=== PATIENT | male | born 1955 | race Caucasian/White ===

== ENCOUNTER → 2025-08-08 09:38 | Outpatient (BNVA) | payer MEDICARE, BC, SELFPAY | PROVIDERS: Visit Provider Surgery | DX: C15.5 Malignant neoplasm of lower third of esophagus (principal); Z87.74 Personal history of (corrected) congenital malformations of heart and circulatory system | CPT/HCPCS: 99204 ==

== ENCOUNTER 2025-08-08 10:56 | Outpatient (CLI) | payer MEDICARE, BC, SELFPAY ==
[2025-08-08 11:28] LABS: Abs Immature Grans 0.07 10^3/uL (0.0-0.06); HCT 25.9 % (40.0-50.0); HGB 8.7 g/dL (13.5-17.5); Immature Grans % 0.8 %; MCH 31.2 pg (27.0-33.0); MCHC 33.6 % (32.0-36.0); MCV 93 fL (80-95); MPV 9.6 fL (8.0-11.0); Platelet Count 300 10^3/uL (130-400); RBC 2.79 10^6/uL (4.36-5.78); RDW 11.9 % (11.8-14.1); RDW-SD 40.5 fL; WBC 9.23 10^3/uL (4.4-10.8)
[2025-08-08 12:35] LABS: INR 1.2 (0.9-1.1); Prothrombin Time 11.7 sec (9.1-11.1)
== END 2025-08-08 10:57 | disposition home or self-care (01) ==
PROVIDERS: Referring Provider Surgery; Visit Provider Surgery
DX: C15.5 Malignant neoplasm of lower third of esophagus (principal); F10.21 Alcohol dependence, in remission; Z01.818 Encounter for other preprocedural examination
CPT/HCPCS: 36415; 99204; 85025; 85610

== ENCOUNTER 2025-08-09 01:43 | Outpatient (CLI) | payer MEDICARE, BC, SELFPAY ==
[2025-08-09 14:03] LABS: Abs Immature Grans 0.06 10^3/uL (0.0-0.06); HCT 22.5 % (40.0-50.0); HGB 7.4 g/dL (13.5-17.5); Immature Grans % 0.6 %; MCH 30.2 pg (27.0-33.0); MCHC 32.9 % (32.0-36.0); MCV 92 fL (80-95); MPV 9.3 fL (8.0-11.0); Platelet Count 322 10^3/uL (130-400); RBC 2.45 10^6/uL (4.36-5.78); RDW 12.0 % (11.8-14.1); RDW-SD 40.5 fL; WBC 9.87 10^3/uL (4.4-10.8)
[2025-08-09 14:27] LABS: ALT 25 U/L (10-49); AST 36 U/L (<34); Albumin 3.3 g/dL (3.2-5.0); Alkaline Phosphatase 76 U/L (46-116); Anion Gap 6.9 mmol/L (3-11); BUN 34 mg/dL (9-23); Bilirubin, Total 0.3 mg/dL (0.2-1.2); CO2 27.1 mmol/L (20.0-31.0); Calcium 8.7 mg/dL (8.3-10.6); Chloride 103 mmol/L (98-107); Glucose 148 mg/dL (74-106); Potassium 4.3 mmol/L (3.5-5.1); Sodium 137 mmol/L (136-145); Total Protein 6.7 g/dL (5.7-8.2)
[2025-08-09 14:30] LABS: Ferritin 143 ng/mL (11-307)
[2025-08-09 14:35] LABS: Iron 70 ug/dL (65-175); Total Iron Binding Capacity 209 ug/dL (250-425); Transferrin Sat 33 % (20-55)
== END 2025-08-09 01:44 | disposition home or self-care (01) ==
LOC: LBO 01:44
PROVIDERS: Internal Medicine Hematology & Oncology; Visit Provider Internal Medicine Hematology & Oncology
DX: C15.9 Malignant neoplasm of esophagus, unspecified (principal); K92.1 Melena
CPT/HCPCS: 36415; 80053; 86850; 86900; 86901; 82728; 83540; 83550; 85025

== ENCOUNTER 2025-08-13 12:39 | Day surgery (SDC) | payer MEDICARE, BC, SELFPAY ==
--- NOTE | 2025-08-13 13:04 | W.PM.DSUDISC ---
Date of service: 08/13/25 Discharge Plan Disposition Patient Disposition: Home Condition: Stable Discharge Details Attending Provider: Bre Guajardo Primary Care Provider: Pedrito Cole Home Meds and New Rx's Prescriptions: New lidocaine-prilocaine 2.5-2.5 % cream 1 applic topical QDAY PRN (Reason: port access) Qty: 30 1RF Continued omeprazole 40 mg capsule,delayed release(DR/EC) 40 mg PO DAILY acetaminophen [Tylenol Arthritis Pain] 650 mg tablet extended release 650 mg PO Q12H omega-3 fatty acids 1,000 mg capsule 1,000 mg PO DAILY calcium carbonate 600 mg calcium (1,500 mg) tablet 600 mg PO DAILY Metamucil 3.4 gram/5.4 gram powder 1 tbsp PO DAILY Rx Instructions: mix into at least 8 oz of water or juice before administering Discharge Instructions Instructions: Portacath, How to Care for a Portacath Additional Instructions: Shower in 24 hours. Wash gently over skin glue with soapy hands, rinse, pat dry. Don't peel glue or submerge incisions under water. Do not clean the glue with rubbing alcohol or any solvents beyond your regular soap/body wash and water. The glue will start to come off on its own in about 2 weeks. Port may be used immediately if needed. Try to remember to apply the numbing cream for comfort before port access. Ok to walk, climb stairs, and resume normal activities of daily living. Avoid strenuous activity for 24 hours. Call or return for fever or incisional problems Stand Alone Forms: Anesthesia Discharge Inst., Ranjeet García (DSU), Portal Information Referrals: Bre Guajardo MD [ [facility] STAFF PHYSICIAN, Surgery] Activity:: Activity as Tolerated Shower/Bathe:: 24 hours Diet:: As Tolerated Discharge Orders Discharge Orders: Discharge Order (Routine); Ordered 08/13/25 Ordered By: Bre Guajardo DS: Diagnosis Discharge Diagnosis (1) Malignant neoplasm of lower third of esophagus: Status: Acute
[2025-08-13 13:10] VITALS: BP 107/42; PULSE 86; RESP 20; TEMP 36.4; O2SAT 97
[2025-08-13] MEDS: Lactated Ringers 1,000 ML 80 ML IV (13:30)
--- NOTE | 2025-08-13 14:07 | ANES.PREOP_ITS ---
General Info Date of Service Date Performed: 08/13/25 Height: 5 ft 7.75 in Weight: 82.2 kg Body Mass Index (BMI): 27.7 Surgical Procedure: Operation Date: 08/13/25 14:25 Proposed Procedure Side Surgeon p Port-A-Cath Placement Bre Guajardo MD Meds Allergies and Home Medications Allergies Allergy/AdvReac Type Severity Reaction Status Date / Time Penicillins Allergy Unknown Hives Verified 08/13/25 13:15 Home Medication ?Medication ?Instructions ?Recorded acetaminophen 650 mg 650 mg PO Q12H 08/07/25 tablet,extended release (Tylenol Arthritis Pain) omeprazole 40 mg capsule,delayed 40 mg PO DAILY release calcium carbonate 600 mg PO DAILY 08/08/25 omega-3 fatty acids 1,000 mg 1,000 mg PO DAILY 5 capsule psyllium husk 3.4 gram/5.4 gram 1 tbsp PO DAILY oral powder (Metamucil) Current Visit Medications: Current Medications Generic Name Dose Route Start Last Admin Trade Name Freq PRN Reason Stop Dose Admin Ringer's Solution 1,000 mls @ 80 mls/hr 08/13/25 06:00 IV 08/13/25 23:59 INFUSION ANNA Cefazolin Sodium/Dextrose 2 gm in 50 mls @ 100 mls/hr 08/13/25 06:00 Ancef Duplex IVPB 08/13/25 23:59 PREOP ANNA Sodium Chloride 0 ml 08/13/25 06:00 Normal Saline Flush 10 Ml Syr IV 08/13/25 23:59 PRN PRN Sodium Chloride 0 ml 08/13/25 06:00 Normal Saline 10 Ml Vial IJ 08/13/25 23:59 DIRECTED PRN Sterile Water 0 ml 08/13/25 06:00 Water,Injection,Sterile 10 Ml Vial IJ 08/13/25 23:59 DIRECTED PRN PFSH Active Problems Active Problems: Problem Status Onset Code Personal history of ventricular septal defect Acute Z87.74 Hypertension Chronic I10 Quit drinking alcohol Acute ~05/2025 Z87.898 Gastroesophageal reflux disease due to possible acid reflux Acute K21.9 Weight loss Acute R63.4 Malignant neoplasm of lower third of esophagus Acute C15.5 Medical History Medical History Ventricular septal defect Ulcerative colitis SCC (squamous cell carcinoma) BPH (benign prostatic hyperplasia) Postural kyphosis Other seborrheic keratosis Nevus Surgical History Surgical History History of colonoscopy Tobacco Smoking/Tobacco Use Status: Former Tobacco Use Passive smoking exposure: No Alcohol Alcohol Intake: former Substance Use Substance use: Never Substance use type: does not use Vital Signs and Lab Results Vital Signs Most Recent Vital Signs in EMR: Most Recent Vital Signs Temp Pulse Resp BP Pulse Ox 36.4 C L 86 20 107/42 L 97 08/13/25 13:10 08/13/25 13:10 08/13/25 13:10 08/13/25 13:10 08/13/25 13:10 Lab Results 08/13/25 14:03 Blood Type / Crossmatch: 2 Antibody Screen NEGATIVE 08/09/25 Complete Blood Count: 2 WBC, (4.4-10.8) 9.87 10^3/uL 08/09/25, 13:47 RBC, (4.36-5.78) 2.45 10^6/uL L 08/09/25, 13:47 Hgb, (13.5-17.5) 7.9 g/dL L Today, 14:03 Hct, (40.0-50.0) 23.6 % L Today, 14:03 Plt Count, (130-400) 322 10^3/uL 08/09/25, 13:47 Complete Metabolic Panel: 2 Sodium, (136-145) 137 mmol/L 08/09/25, 13:47 Potassium, (3.5-5.1) 4.3 mmol/L 08/09/25, 13:47 Chloride, (98-107) 103 mmol/L 08/09/25, 13:47 Carbon Dioxide, (20.0-31.0) 27.1 mmol/L 08/09/25, 13 :47 BUN, (9-23) 34 mg/dL H 08/09/25, 13:47 Creatinine, (0.73-1.18) 0.82 mg/dL 08/09/25, 13:47 Est GFR (CKD-EPI 2020), (mL/min/1.73m2) 92.32 08/09/25, 13:47 Calcium, (8.3-10.6) 8.7 mg/dL 08/09/25, 13:47 Albumin, (3.2-5.0) 3.3 g/dL 08/09/25, 13:47 Glucose, (74-106) 148 mg/dL H 08/09/25, 13:47 Liver Function Panel: 2 ALT, (10-49) 25 U/L 08/09/25, 13:47 AST, (<34) 36 U/L H 08/09/25, 13:47 Coagulation Panel: 2 INR, (0.9-1.1) 1.2 H 08/08/25, 11:15 PT, (9.1-11.1) 11.7 sec H 08/08/25, 11:15 Anesthesia Assessment and Plan Anesthesia History Personal History: No History of Anesthesia Complications Family History: No Family History of Anesthesia Complications Exercise Tolerance Exercise Tolerance: Metabolic Equivalents>4 Pertinent Negatives Pertinent Negatives: No Major Cardiovascular Symptoms or Complaints and No Major Pulmonary Symptoms or Complaints Cardiac & Pulmonary Exam Cardiac Exam: Heart Murmur Present Pulmonary Exam: Clear Bilateral Breath Sounds Implantable Cardiac Device Does patient have a Pacemaker or an ICD?: No Airway Exam Known Difficult Airway: No Mallampati Class: 2 Mouth Opening: Normal (> 3cm) Thyromental Distance: Greater than 3 cm Neck Range of Motion: Full ROM Neck Circumference: Normal Teeth Condition: Normal Dentition ASA Classification ASA Score: ASA 3 Emergency Case?: No NPO Status NPO Status: NPO Clears >2 hours, Solids >8 hours Anesthesia Plan Resuscitation Status: Full Code Anesthesia Technique: General Anesthesia Airway Planned: Natural Airway Monitors Used: Standard Monitors Preoperative Comments:: [place] [facility] [place], ?GIB/melena. Patient reported he was transfused with 2/units/PRBC and had an upper scope completed. Plan for repeat H/H today prior to the procedure.
[2025-08-13 14:09] LABS: HCT 23.6 % (40.0-50.0); HGB 7.9 g/dL (13.5-17.5)
--- NOTE | 2025-08-13 14:30 | DI.RAD_ITS ---
Exam(s) RF LINE PLACEMENT OR EXAM: RF LINE PLACEMENT OR CLINICAL HISTORY: Malignant neoplasm of lower third of esophagus. TECHNIQUE: 2D and realtime digital imaging was performed. COMPARISON: No exams were available for comparison FINDINGS: Hard copy images show placement of a right internal jugular catheter. The tip is difficult to visualize but appears to project near the cavoatrial junction. Please see procedure note for details. Fluoro time: 39.2seconds RADIATION DOSE DELIVERED: do Sung=5.9 mGy
[2025-08-13 15:01] VITALS: BMI 27.7
[2025-08-13] MEDS: ceFAZolin 2 GM/50 ML BAG IVPB (15:23)
[2025-08-13] MEDS: Lidocaine 1% Pres-Free W/EPI 1/200,000 10 ML VIAL (15:54)
[2025-08-13] MEDS: Heparin 500 UNITS/5 ML SYRINGE ×2 (15:54→16:28)
[2025-08-13 16:36] VITALS: BP 115/58; PULSE 66; RESP 17; TEMP 36.6; O2SAT 98
--- NOTE | 2025-08-13 16:42 | ROE_ITS ---
Operative Note Operative Note PRE-OP DIAGNOSIS: esophageal cancer POST-OP DIAGNOSIS: same PROCEDURE: right internal jugular port placement with fluoroscopic guidance and interpretation SURGEON: Bre Guajardo CLIENT CARE MANAGER: Ramo Kimbrough ANESTHESIA TYPE: Local By Surgeon and MAC Refer to Anesthesia Record ESTIMATED BLOOD LOSS: 5 PATHOLOGY: none sent COMPLICATIONS: None Implants: PORT - SEE NURSING DOCUMENTATION Procedure Description: This is a 70-year-old male with esophageal cancer. Chemotherapy will be given. He was referred to nm for port placement. We discussed port placement risks and benefits and alternatives and expectations. We specifically just discussed pain, bleeding, infection, arterial puncture, pneumothorax. He verbalized understanding of the procedure and its risks. Informed consent was obtained. He was taken to the operating room on the planned day of surgery. He was placed supine on the operating table SCDs were placed and all pressure points were padded appropriately. The neck and chest were clipped, prepped and draped in the usual sterile fashion. Timeout was performed. Ultrasound was used to identify a widely patent and compressible jugular vein in the right neck. Its location was marked. The skin over the neck and planned port site were anesthetized with lidocaine. A small incision was made over the location of the jugular vein and venous access obtained with an access needle. Dark nonpulsatile blood withdrew easily into the syringe. The guidewire was passed. Fluoroscopy confirmed venous positioning of the guidewire. A pocket was made f or the port on the right upper chest wall by incising the skin and using cautery to dissect the subcutaneous tissues. Blunt finger dissection was used to create a pocket. The catheter was tunneled up to the venous access site on the neck using the tunneling device. The catheter was flushed. The dilator sheath was passed over the guidewire and into the SVC under direct fluoroscopic guidance. The wire was removed. The catheter was advanced and positioned in the distal SVC under fluoroscopic guidance. The dilator sheath was peeled away. The catheter was cut and attached to the port device. The port was placed into the subcutaneous pocket and secured to the chest wall at the 2 superior points using 3-0 Prolene suture. Easy flush and aspiration were confirmed. The pocket over the port was closed in 2 layers. The subcutaneous tissue was reapproximated with interrupted 3-0 Vicryl sutures. The skin was closed with interrupted 4-0 Monocryl subcuticular sutures. The skin was washed and dried and surgical skin glue applied. All sponge and instrument counts were correct at the end of the case. Heparin lock was flushed into the port and catheter. The patient woke from sedation in the operating room and transferred to the recovery room in stable condition. The chest x-ray was ordered for routine postoperative evaluation of port position and to routinely evaluate for pneumothorax. Date of Procedure: 08/13/25
--- NOTE | 2025-08-13 16:45 | W.ANESPOSTOP ---
Postoperative Evaluation Date, Time and Location Date Performed: 08/13/25 Time Performed: 16:40 Patient Location: Day Surgery Unit Vital Signs Most Recent Imported Vital Signs: Most Recent Vital Signs Temp Pulse Resp BP Pulse Ox 36.6 C 66 17 115/58 L 98 08/13/25 16:36 08/13/25 16:36 08/13/25 16:36 08/13/25 16:36 08/13/25 16:36 Pain Score Most Recent Pain Score: Most Recent Pain Score Pain Level 0 08/13/25 16:36 Assessment Mental Status: Awake (Alert & Oriented to Patient Baseline) Airway and Respiratory Function: Patent airway with normal (patient baseline) respiratory exam Cardiovascular Function: Hemodynamically Stable Hydration Status: Adequately Hydrated Nausea & Vomiting: No Nausea or Vomiting Pain: Pt. Denies Any Pain Peripheral Nerve Block: Patient did not receive a nerve block
--- NOTE | 2025-08-13 16:50 | DI.RAD_ITS ---
Exam(s) XR PORTABLE CHEST AP EXAM: XR PORTABLE CHEST AP CLINICAL HISTORY: R IJ port placement TECHNIQUE: 2D digital imaging was performed. COMPARISON: No exams were available for comparison FINDINGS: Right internal jugular port has been placed. The tip lies at the junction of the SVC and right atrium. LUNGS: Clear. No pleural abnormality seen. HEART: Mildly enlarged. AORTA: Tortuous. Mediastinum: Increased density at the level of the descending aorta which could represent a hiatal hernia. BONES: Unremarkable for age. Soft tissues: Unremarkable. IMPRESSION: Satisfactory placement right internal jugular port. Increased density medially above the left diaphragm which may represent a hiatal hernia. DATA REPOSITORY: RADIATION DOSE DELIVERED:
[2025-08-13 17:14] VITALS: BP 120/70; PULSE 63; RESP 16; TEMP 37; O2SAT 96
== END 2025-08-13 17:32 | disposition home or self-care (01) ==
PROVIDERS: Student in an Organized Health Care Education/Training Program; PCP Emergency Medicine Undersea and Hyperbaric Medicine; Visit Provider Surgery
PROC: (CPT 36561; principal; 2025-08-13 14:15)
DX: C15.5 Malignant neoplasm of lower third of esophagus (principal)
CPT/HCPCS: 36561; 36415; 77001; 71045; 85014; 85018; C1788; J0690; J1100; J1642; J2003; J2004; J2250; J2371; J2405; J2704; J3010

== ENCOUNTER 2025-08-22 09:43 | Outpatient (CLI) | payer MEDICARE, BC, SELFPAY | END 2025-08-22 09:44 | disposition home or self-care (01) | LOC: LBO 09:44 | PROVIDERS: PCP Emergency Medicine Undersea and Hyperbaric Medicine; Visit Provider Internal Medicine Hematology & Oncology | DX: C15.9 Malignant neoplasm of esophagus, unspecified (principal) | CPT/HCPCS: 36415 ==